=== PATIENT | male | born 1985 | race Caucasian/White ===

== ENCOUNTER 2022-07-12 22:30 | Inpatient (IN) | payer MEDICAID, OTHER ==
[~2022-07-12] VITALS: Ht 182.9 cm; Wt 75.5 kg
[2022-07-13] MEDS ORDERED: VANCOMYCIN 1GM/250ML 250 ML IV ONE (01:15)
[2022-07-13] MEDS ORDERED: PIPERACILLIN-TAZOB 3.375GM 100 ML IV ONE (01:15)
[2022-07-13 02:14] LABS: Basophils # (auto) 0 10 ^3/uL (0-0.2); Basophils % (auto) 0.1 % (0.0-2.0); Eosinophils # (auto) 0 10 ^3/uL (0-0.8); Eosinophils % (auto) 0.2 % (0.0-7.0); Hematocrit 36.5 % (41.0-53.0); Hemoglobin 12.4 g/dL (13.5-17.5); Lymphocytes # (auto) 0.6 10 ^3/uL (0.4-5.4); Lymphocytes % (auto) 4.6 % (10.0-50.0); Mean Corpuscular Hgb Conc. 33.9 g/dL (32.0-36.0); Mean Corpuscular Volume 91.6 fL (80.0-100.0); Monocytes % (auto) 7.3 % (0.0-12.0); Neutrophils # (auto) 11.5 10 ^3/uL (1.6-8.6); Neutrophils % (auto) 87.8 % (37.0-80.0); Red Blood Cells 3.98 10^6/uL (4.5-5.90); Red Cell Distribution Width 13.1 % (11.8-14.3); White Blood Cell 13.1 10^3/uL (4.4-10.8)
[2022-07-13 02:31] LABS: Albumin 3.7 g/dL (3.4-5.0); Calcium 9.1 mg/dL (8.5-10.1); Potassium 3.2 mmol/L (3.5-5.1)
[2022-07-13 02:39] LABS: BUN/Creatinine Ratio 27.5; Bilirubin, Total 1.4 mg/dL (0.2-1.0)
[2022-07-13] MEDS ORDERED: TEMAZEPAM 15 MG CAP PO PRN (07:15)
[2022-07-13] MEDS ORDERED: ALUM & MAG HYDROX-SIMETH LIQ(MAALOX) 30 ML PO PRN (07:15)
[2022-07-13] MEDS ORDERED: DOCUSATE SOD 100 MG CAP PO PRN (07:15)
[2022-07-13] MEDS ORDERED: ONDANSETRON HCL 4 MG/2 ML VIAL IV PRN (07:15)
[2022-07-13] MEDS ORDERED: ACETAMINOPHEN 325 MG TAB PO PRN (07:15)
[2022-07-13] MEDS ORDERED: LORazepam 0.5 MG TAB PO PRN (07:15)
[2022-07-13] MEDS ORDERED: VANCOMYCIN PER PHARMACY 0 MG IV SCH (07:15)
[2022-07-13 07:57] LABS: Basophils # (auto) 0.1 10 ^3/uL (0-0.2); Basophils % (auto) 0.8 % (0.0-2.0); Eosinophils # (auto) 0.1 10 ^3/uL (0-0.8); Eosinophils % (auto) 0.6 % (0.0-7.0); Hematocrit 36.9 % (41.0-53.0); Hemoglobin 12.8 g/dL (13.5-17.5); Lymphocytes # (auto) 0.3 10 ^3/uL (0.4-5.4); Lymphocytes % (auto) 2.4 % (10.0-50.0); Mean Corpuscular Hemoglobin 31.7 pg (28.0-32.0); Mean Corpuscular Hgb Conc. 34.6 g/dL (32.0-36.0); Mean Corpuscular Volume 91.8 fL (80.0-100.0); Monocytes # (auto) 1.1 10 ^3/uL (0-1.3); Neutrophils # (auto) 11.7 10 ^3/uL (1.6-8.6); Neutrophils % (auto) 88.2 % (37.0-80.0); Red Blood Cells 4.02 10^6/uL (4.5-5.90); Red Cell Distribution Width 13.4 % (11.8-14.3); White Blood Cell 13.3 10^3/uL (4.4-10.8)
[2022-07-13 08:29] LABS: Potassium 3.3 mmol/L (3.5-5.1)
[2022-07-13 08:43] LABS: BUN/Creatinine Ratio 22.4; Calcium 9.1 mg/dL (8.5-10.1)
[2022-07-13] MEDS: SODIUM CHLORIDE 0.9% 1,000 ML IV SCH ×2 (10:37→23:55)
[2022-07-13 12:59] LABS: Hematocrit 35.9 % (41.0-53.0); Hemoglobin 12.4 g/dL (13.5-17.5); Mean Corpuscular Hemoglobin 31.6 pg (28.0-32.0); Mean Corpuscular Hgb Conc. 34.4 g/dL (32.0-36.0); Mean Corpuscular Volume 91.6 fL (80.0-100.0); Red Blood Cells 3.91 10^6/uL (4.5-5.90); Red Cell Distribution Width 13.6 % (11.8-14.3); White Blood Cell 14.4 10^3/uL (4.4-10.8)
[2022-07-13 13:09] LABS: Basophils % (manual) 0 (0.0-2.0); Blast Cells 0; Metamyelocytes % 0; Myelocytes % 0; Promyelocytes % 0; Reactive Lymphocytes 0
[2022-07-13 13:15] LABS: BUN/Creatinine Ratio 25.6; Calcium 8.7 mg/dL (8.5-10.1); Potassium 3.4 mmol/L (3.5-5.1)
[2022-07-13] MEDS ORDERED: PIPERACILLIN-TAZOB 3.375GM 100 ML IV SCH (14:00)
[2022-07-13 15:17] LABS: Band Neutrophils % (manual) 8; Eosinophils % (manual) 2 (0-7); Lymphocytes % (manual) 3 (10.0-50.0); Monocytes % (manual) 3 (0-12)
[2022-07-13] MEDS: VANCOMYCIN 1GM/250ML 250 ML IV SCH (20:31)
[2022-07-14 05:00] VITALS: BP 120/54
[2022-07-14] MEDS: VANCOMYCIN 1GM/250ML 250 ML IV SCH ×2 (05:10→17:00)
[2022-07-14 05:48] LABS: Basophils # (auto) 0 10 ^3/uL (0-0.2); Basophils % (auto) 0.2 % (0.0-2.0); Eosinophils # (auto) 0.2 10 ^3/uL (0-0.8); Eosinophils % (auto) 1.7 % (0.0-7.0); Hematocrit 33.6 % (41.0-53.0); Hemoglobin 11.6 g/dL (13.5-17.5); Lymphocytes # (auto) 0.7 10 ^3/uL (0.4-5.4); Lymphocytes % (auto) 7.7 % (10.0-50.0); Mean Corpuscular Hemoglobin 31.9 pg (28.0-32.0); Mean Corpuscular Hgb Conc. 34.7 g/dL (32.0-36.0); Mean Corpuscular Volume 91.9 fL (80.0-100.0); Monocytes # (auto) 1.1 10 ^3/uL (0-1.3); Monocytes % (auto) 11.4 % (0.0-12.0); Neutrophils # (auto) 7.7 10 ^3/uL (1.6-8.6); Red Blood Cells 3.65 10^6/uL (4.5-5.90); Red Cell Distribution Width 13.2 % (11.8-14.3); White Blood Cell 9.8 10^3/uL (4.4-10.8)
[2022-07-14 05:58] LABS: Calcium 8.7 mg/dL (8.5-10.1)
[2022-07-14 06:04] LABS: BUN/Creatinine Ratio 21.1
[2022-07-14 07:38] LABS: Alcohol, Urine < 3.0 mg/dL (0-10); Amphetamine Screen, Urine NEGATIVE (NEGATIVE); Barbiturate Scree,Urine NEGATIVE (NEGATIVE); Benzodiazephine Screen, Urine NEGATIVE (NEGATIVE); Cannabinoid Screen, Urine NEGATIVE (NEGATIVE); Cocaine Screen, Urine NEGATIVE (NEGATIVE); Opiate Scree,Urine NEGATIVE (NEGATIVE); Phencyclidine Screen, Urine NEGATIVE (NEGATIVE)
[2022-07-14 08:00] VITALS: BP 121/73
[2022-07-14 09:00] VITALS: BP 106/64
[2022-07-14 13:00] VITALS: BP 121/73
[2022-07-14 17:00] VITALS: BP 115/65
[2022-07-14 22:00] VITALS: BP 116/64
[2022-07-15] MEDS: VANCOMYCIN 1GM/250ML 250 ML IV SCH ×3 (00:39→17:45)
[2022-07-15 05:00] VITALS: BP 119/70
[2022-07-15 06:58] LABS: Basophils # (auto) 0 10 ^3/uL (0-0.2); Basophils % (auto) 0.1 % (0.0-2.0); Eosinophils # (auto) 0.2 10 ^3/uL (0-0.8); Eosinophils % (auto) 2.6 % (0.0-7.0); Hematocrit 35.5 % (41.0-53.0); Hemoglobin 11.9 g/dL (13.5-17.5); Lymphocytes # (auto) 0.9 10 ^3/uL (0.4-5.4); Lymphocytes % (auto) 10.9 % (10.0-50.0); Mean Corpuscular Hemoglobin 31.2 pg (28.0-32.0); Mean Corpuscular Hgb Conc. 33.6 g/dL (32.0-36.0); Mean Corpuscular Volume 92.9 fL (80.0-100.0); Monocytes % (auto) 11.5 % (0.0-12.0); Neutrophils # (auto) 6.3 10 ^3/uL (1.6-8.6); Neutrophils % (auto) 74.9 % (37.0-80.0); Red Blood Cells 3.82 10^6/uL (4.5-5.90); Red Cell Distribution Width 13.3 % (11.8-14.3); White Blood Cell 8.5 10^3/uL (4.4-10.8)
[2022-07-15 07:40] LABS: Potassium 3.5 mmol/L (3.5-5.1)
[2022-07-15 08:00] VITALS: BP 115/58
[2022-07-15 09:00] VITALS: BP 115/65
[2022-07-15] MEDS: MORPHINE SULFATE INJ 2 MG/ml SYRG IV PRN (12:59)
[2022-07-15 13:00] VITALS: BP 125/68
[2022-07-15 21:54] VITALS: BP 117/57
[2022-07-15] MEDS ORDERED: CEFTRIAXONE SODIUM 2 GM in D5W 5% 50 ML IV ONE (22:15)
[2022-07-16] MEDS: VANCOMYCIN 1GM/250ML 250 ML IV SCH ×3 (00:47→17:00)
[2022-07-16 05:00] VITALS: BP 109/56
[2022-07-16 05:43] LABS: Basophils # (auto) 0 10 ^3/uL (0-0.2); Basophils % (auto) 0.3 % (0.0-2.0); Eosinophils # (auto) 0.3 10 ^3/uL (0-0.8); Eosinophils % (auto) 4.3 % (0.0-7.0); Hematocrit 37.6 % (41.0-53.0); Hemoglobin 12.8 g/dL (13.5-17.5); Lymphocytes # (auto) 1.4 10 ^3/uL (0.4-5.4); Lymphocytes % (auto) 22.1 % (10.0-50.0); Mean Corpuscular Hemoglobin 31.7 pg (28.0-32.0); Mean Corpuscular Volume 93.3 fL (80.0-100.0); Monocytes # (auto) 0.8 10 ^3/uL (0-1.3); Neutrophils % (auto) 60.3 % (37.0-80.0); Red Blood Cells 4.03 10^6/uL (4.5-5.90); Red Cell Distribution Width 13.6 % (11.8-14.3); White Blood Cell 6.5 10^3/uL (4.4-10.8)
[2022-07-16 05:53] LABS: BUN/Creatinine Ratio 30.5; Calcium 8.3 mg/dL (8.5-10.1)
[2022-07-16 08:48] VITALS: BP 110/65
[2022-07-16] MEDS ORDERED: BUPIVACAINE 0.5% P/F INJ 10 ML VIAL ONE (09:54)
[2022-07-16] MEDS: CEFTRIAXONE SODIUM 2 GM in D5W 5% 50 ML IV SCH (10:00)
[2022-07-16] MEDS ORDERED: SUCCINYLCHOLINE CHLORIDE 20 MG/ML 10ML VIAL IV ONE (10:43)
[2022-07-16] MEDS ORDERED: ROCURONIUM 10MG/ML 10ML VIAL IV ONE (10:43)
[2022-07-16] MEDS ORDERED: MIDAZOLAM HCL 2MG/2ML 2ml VIAL (1mg/ml) ONE (11:00)
[2022-07-16] MEDS ORDERED: ONDANSETRON HCL 4 MG/2 ML VIAL ONE (11:00)
[2022-07-16] MEDS ORDERED: fentaNYL CITRATE 100 MCG/2 ML VL ONE (11:00)
[2022-07-16] MEDS ORDERED: PROPOFOL 10 MG/ML 20 ML IV ONE (11:00)
[2022-07-16] MEDS ORDERED: SODIUM CHLORIDE LOCK 10 ML ONE (11:00)
[2022-07-16] MEDS ORDERED: MORPHINE SULFATE 4 MG/ML SYR/VIAL IV PRN (12:00)
[2022-07-16] MEDS ORDERED: HYDROmorphone HCL 2 MG/ML VL/or syr IV PRN ×2 (12:00)
[2022-07-16] MEDS ORDERED: METOCLOPRAMIDE HCL 5MG/ml INJ 2ml VIAL IV PRN (12:00)
[2022-07-16 12:12] LABS: Hepatitis C Antibody Negative (Negative)
[2022-07-16] MEDS ORDERED: LACTATED RINGER'S 1,000 ML IV SCH (12:30)
[2022-07-16 13:00] VITALS: BP 111/72
[2022-07-16] MEDS ORDERED: DexAMETHasone SOD PHOS 10MG/1ML VIAL INJ IV ONE (15:12)
[2022-07-16 16:52] VITALS: BP 108/67
[2022-07-16] MEDS: HYDROcodone-ACET 5/325MG TAB PO PRN (21:26)
[2022-07-16 22:00] VITALS: BP 106/57
[2022-07-17] MEDS: VANCOMYCIN 1GM/250ML 250 ML IV SCH ×3 (00:38→17:58)
[2022-07-17 05:00] VITALS: BP 102/56
[2022-07-17 05:59] LABS: Basophils # (auto) 0 10 ^3/uL (0-0.2); Basophils % (auto) 0.5 % (0.0-2.0); Eosinophils # (auto) 0.3 10 ^3/uL (0-0.8); Eosinophils % (auto) 5.2 % (0.0-7.0); Hematocrit 39.4 % (41.0-53.0); Hemoglobin 12.8 g/dL (13.5-17.5); Lymphocytes # (auto) 1.7 10 ^3/uL (0.4-5.4); Lymphocytes % (auto) 28.5 % (10.0-50.0); Mean Corpuscular Hemoglobin 30.7 pg (28.0-32.0); Mean Corpuscular Hgb Conc. 32.6 g/dL (32.0-36.0); Mean Corpuscular Volume 94.1 fL (80.0-100.0); Monocytes # (auto) 0.8 10 ^3/uL (0-1.3); Monocytes % (auto) 12.8 % (0.0-12.0); Neutrophils # (auto) 3.2 10 ^3/uL (1.6-8.6); Red Blood Cells 4.18 10^6/uL (4.5-5.90); Red Cell Distribution Width 13.4 % (11.8-14.3)
[2022-07-17 06:26] LABS: Potassium 4.5 mmol/L (3.5-5.1)
[2022-07-17 06:30] LABS: BUN/Creatinine Ratio 31.7; Calcium 8.6 mg/dL (8.5-10.1)
[2022-07-17 09:00] VITALS: BP 106/62
[2022-07-17] MEDS: CEFTRIAXONE SODIUM 2 GM in D5W 5% 50 ML IV SCH (09:39)
[2022-07-17] MEDS: HYDROcodone-ACET 5/325MG TAB PO PRN (11:30)
[2022-07-17 13:00] VITALS: BP 104/56
[2022-07-17 22:00] VITALS: BP 115/64
[2022-07-18] MEDS: VANCOMYCIN 1GM/250ML 250 ML IV SCH ×3 (01:25→17:28)
[2022-07-18 05:00] VITALS: BP 118/72
[2022-07-18 05:39] LABS: Basophils # (auto) 0 10 ^3/uL (0-0.2); Basophils % (auto) 0.7 % (0.0-2.0); Eosinophils # (auto) 0.3 10 ^3/uL (0-0.8); Eosinophils % (auto) 4.8 % (0.0-7.0); Hematocrit 36.3 % (41.0-53.0); Hemoglobin 12.2 g/dL (13.5-17.5); Lymphocytes # (auto) 1.7 10 ^3/uL (0.4-5.4); Lymphocytes % (auto) 26.1 % (10.0-50.0); Mean Corpuscular Hemoglobin 31.6 pg (28.0-32.0); Mean Corpuscular Hgb Conc. 33.7 g/dL (32.0-36.0); Mean Corpuscular Volume 93.6 fL (80.0-100.0); Monocytes # (auto) 0.8 10 ^3/uL (0-1.3); Monocytes % (auto) 12.4 % (0.0-12.0); Neutrophils # (auto) 3.7 10 ^3/uL (1.6-8.6); Red Blood Cells 3.87 10^6/uL (4.5-5.90); Red Cell Distribution Width 13.2 % (11.8-14.3); White Blood Cell 6.6 10^3/uL (4.4-10.8)
[2022-07-18 05:58] LABS: Calcium 8.5 mg/dL (8.5-10.1); Potassium 4.1 mmol/L (3.5-5.1)
[2022-07-18 06:00] LABS: BUN/Creatinine Ratio 34.9
[2022-07-18 09:00] VITALS: BP 110/69
[2022-07-18] MEDS: CEFTRIAXONE SODIUM 2 GM in D5W 5% 50 ML IV SCH (12:00)
[2022-07-18 13:00] VITALS: BP 112/59
[2022-07-18] MEDS: MORPHINE SULFATE INJ 2 MG/ml SYRG IV PRN (14:26)
[2022-07-18 17:00] VITALS: BP 108/64
[2022-07-18] MEDS: HYDROcodone-ACET 5/325MG TAB PO PRN (21:58)
[2022-07-18 22:00] VITALS: BP 112/64
[2022-07-19] MEDS: VANCOMYCIN 1GM/250ML 250 ML IV SCH ×3 (01:26→17:26)
[2022-07-19 05:00] VITALS: BP 104/62
[2022-07-19 08:58] VITALS: BP 117/67
[2022-07-19] MEDS: CEFTRIAXONE SODIUM 2 GM in D5W 5% 50 ML IV SCH (10:06)
[2022-07-19 12:30] VITALS: BP 131/74
[2022-07-19 17:10] VITALS: BP 101/63
[2022-07-19 22:00] VITALS: BP 116/71
[2022-07-19] MEDS: HYDROcodone-ACET 5/325MG TAB PO PRN (22:22)
[2022-07-20] MEDS: VANCOMYCIN 1GM/250ML 250 ML IV SCH ×3 (01:41→21:44)
[2022-07-20 05:00] VITALS: BP 121/64
[2022-07-20 06:08] LABS: Basophils # (auto) 0 10 ^3/uL (0-0.2); Basophils % (auto) 0.3 % (0.0-2.0); Eosinophils # (auto) 0.3 10 ^3/uL (0-0.8); Eosinophils % (auto) 3.8 % (0.0-7.0); Hematocrit 38.2 % (41.0-53.0); Hemoglobin 12.5 g/dL (13.5-17.5); Lymphocytes # (auto) 1.6 10 ^3/uL (0.4-5.4); Lymphocytes % (auto) 21.9 % (10.0-50.0); Mean Corpuscular Hgb Conc. 32.9 g/dL (32.0-36.0); Mean Corpuscular Volume 94.3 fL (80.0-100.0); Monocytes # (auto) 0.8 10 ^3/uL (0-1.3); Monocytes % (auto) 10.7 % (0.0-12.0); Neutrophils # (auto) 4.5 10 ^3/uL (1.6-8.6); Neutrophils % (auto) 63.3 % (37.0-80.0); Red Blood Cells 4.04 10^6/uL (4.5-5.90); Red Cell Distribution Width 13.4 % (11.8-14.3); White Blood Cell 7.1 10^3/uL (4.4-10.8)
[2022-07-20 06:27] LABS: BUN/Creatinine Ratio 28.4; Calcium 8.9 mg/dL (8.5-10.1); Potassium 4.1 mmol/L (3.5-5.1)
[2022-07-20 08:30] VITALS: BP 112/68
[2022-07-20] MEDS: CEFTRIAXONE SODIUM 2 GM in D5W 5% 50 ML IV SCH (10:24)
[2022-07-20 12:53] VITALS: BP 108/60
[2022-07-20] MEDS ORDERED: AMOX500T86 PO (14:08)
[2022-07-20 16:55] VITALS: BP 111/62
[2022-07-20 22:00] VITALS: BP 97/53
[2022-07-21 05:00] VITALS: BP 118/78
[2022-07-21 05:44] LABS: Basophils # (auto) 0.1 10 ^3/uL (0-0.2); Basophils % (auto) 1.2 % (0.0-2.0); Eosinophils # (auto) 0.3 10 ^3/uL (0-0.8); Eosinophils % (auto) 3.1 % (0.0-7.0); Hematocrit 39.7 % (41.0-53.0); Lymphocytes # (auto) 2.2 10 ^3/uL (0.4-5.4); Lymphocytes % (auto) 26.2 % (10.0-50.0); Mean Corpuscular Hemoglobin 32.5 pg (28.0-32.0); Mean Corpuscular Hgb Conc. 35.2 g/dL (32.0-36.0); Mean Corpuscular Volume 92.4 fL (80.0-100.0); Monocytes % (auto) 11.4 % (0.0-12.0); Neutrophils # (auto) 4.9 10 ^3/uL (1.6-8.6); Neutrophils % (auto) 58.1 % (37.0-80.0); Red Blood Cells 4.29 10^6/uL (4.5-5.90); Red Cell Distribution Width 13.2 % (11.8-14.3); White Blood Cell 8.4 10^3/uL (4.4-10.8)
[2022-07-21 06:07] LABS: Calcium 9.2 mg/dL (8.5-10.1); Chloride 106 mmol/L (98-107); Potassium 4.4 mmol/L (3.5-5.1); Sodium 138 mmol/L (136-145)
[2022-07-21 06:10] LABS: Anion Gap 8 (5-15); BUN/Creatinine Ratio 25.6; Blood Urea Nitrogen 20 mg/dL (7-18); Carbon Dioxide 24 mmol/L (21-32); GFR African American 143 mL/min; GFR Non-African American 118 mL/min; Glucose 84 mg/dL (74-106)
[2022-07-21] MEDS: VANCOMYCIN 1GM/250ML 250 ML IV SCH (08:39)
[2022-07-21 09:18] VITALS: BP 122/74
[2022-07-21 11:49] VITALS: BP 122/74
[2022-07-21 12:36] VITALS: BP 100/54
== END 2022-07-21 14:00 | disposition home or self-care (01) | DRG 364 ==
LOC: EDBD 22:30 → ER 22:34 → OVERFLOW 07-13 07:01 → EAST 07-13 21:30 → TELE-EAST 07-13 21:40
PROVIDERS: ADMIT Hospitalist; ATTEND Internal Medicine Pulmonary Disease
PROC: 0KBD0ZZ Excision of Left Hand Muscle, Open Approach (ICD-10-PCS; principal; 2022-07-16 11:25)
DX: L02.512 Cutaneous abscess of left hand (principal); E87.1 Hypo-osmolality and hyponatremia; L03.114 Cellulitis of left upper limb; D64.9 Anemia, unspecified; E86.0 Dehydration; E87.6 Hypokalemia; R79.89 Other specified abnormal findings of blood chemistry; D72.829 Elevated white blood cell count, unspecified; F15.10 Other stimulant abuse, uncomplicated; F17.210 Nicotine dependence, cigarettes, uncomplicated; Z59.00 Homelessness unspecified; Z20.822 Contact with and (suspected) exposure to COVID-19
CPT/HCPCS: 36415; 73130; 73218; 80048; 80053; 80202; 80307; 83605; 85007; 85025; 85027; 85652; 86141; 86803; 87070; 87075; 87081; 87205; 87340; 87426; 96361; 96365; 96366; 96368; G0378; J0330; J0696; J1100; J2250; J2405; J2543; J2704; J3490; J7060